=== PATIENT | female | born 1990 | race African-American/Black ===

== ENCOUNTER 2017-10-12 16:10 | Inpatient (IN) | payer MEDICAID ==
[~2017-10-12] VITALS: Ht 170.2 cm; Wt 81.6 kg
[2017-10-12] MEDS ORDERED: DEXT 5%/LR + PITOCIN 20UNITS/L 1,000 ML IV SCH ×2 (18:25→23:45)
[2017-10-12] MEDS ORDERED: CARBOPROST TROMETHAMINE 250 MCG/ML AMPUL IM PRN (18:30)
[2017-10-12] MEDS ORDERED: NALOXONE HCL 0.4 MG/ML 1ML VIAL IM PRN (18:30)
[2017-10-12] MEDS ORDERED: METHYLERGONOVINE MALEATE 0.2 MG/ML IM PRN (18:30)
[2017-10-12 19:05] LABS: CLARITY URINE CLEAR (CLEAR); COLOR URINE YELLOW (YELLOW); KETONES URINE NEGATIVE (NEGATIVE); LEUKOCYTE ESTERASE URINE TRACE (NEGATIVE); NITRITE URINE NEGATIVE (NEGATIVE); OCCULT BLOOD URINE NEGATIVE (NEGATIVE); PH URINE 6.5 (4.5-8.0); PROTEIN URINE NEGATIVE (NEGATIVE); SPECIFIC GRAVITY URINE 1.014 (1.005-1.030)
[2017-10-12 19:08] LABS: BASOPHILS % 0.3 % (0.0-2.0); EOSINOPHILS % 0.6 % (0.0-5.0); HEMATOCRIT. 32.5 % (36.0-48.0); HEMOGLOBIN. 10.8 g/dL (12.0-16.0); MONOCYTES % 6.3 % (2.0-8.0); NEUTROPHILS % 76.8 % (40.0-76.0); PLATELET 230 x1000/uL (130-400); RED BLOOD CELL COUNT 3.74 mill/uL (4.2-5.4); RED CELL DISTRIBUTION WIDTH 12.6 % (11.6-14.6)
[2017-10-12] MEDS: LACTATED RINGERS 1,000 ML IV SCH ×2 (19:09→21:30)
[2017-10-12 19:12] LABS: PARTIAL THROMBOPLASTIN TIME 25.1 sec (23.4-31.0); PROTHROMBIN TIME 10.2 sec (9.4-11.6)
[2017-10-12 19:25] LABS: *AMPHETAMINES SCREEN URINE NEGATIVE (NEGATIVE); *BARBITURATES SCREEN URINE NEGATIVE (NEGATIVE); *BENZODIAZEPINES SCREEN URINE NEGATIVE (NEGATIVE); *COCAINE SCREEN URINE NEGATIVE (NEGATIVE); CANNABINOID URINE SCREEN NEGATIVE (NEGATIVE); METHADONE URINE SCREEN NEGATIVE (NEGATIVE); OPIATES URINE SCREEN NEGATIVE (NEGATIVE); PHENCYCLIDINE URINE SCREEN NEGATIVE (NEGATIVE)
[2017-10-12 19:46] LABS: HEPATITIS B SURFACE ANTIGEN NEGATIVE; RUBELLA IGG 15.7 IU/mL (4.99-10)
[2017-10-12] MEDS ORDERED: CITRIC ACID/SODIUM CITRATE SOLN 30ML UDC PO NR (20:15)
[2017-10-12] MEDS ORDERED: MORPHINE SULFATE/PF 1MG/ML 10ML AMP ONE (22:28)
[2017-10-12] MEDS ORDERED: SODIUM CHLORIDE 0.9% 10ML VIAL ONE (22:29)
[2017-10-12] MEDS ORDERED: CEFAZOLIN SODIUM 1000MG/VIAL ONE (22:29)
[2017-10-12] MEDS ORDERED: METOCLOPRAMIDE HCL 10MG/2ML VIAL ONE (23:21)
[2017-10-12] MEDS ORDERED: ONDANSETRON HCL 4MG/2ML VIAL ONE (23:22)
[2017-10-12] MEDS ORDERED: OXYTOCIN 10 UNITS/ML 1ML ONE (23:26)
[2017-10-12] MEDS ORDERED: IBUPROFEN 400MG TABLET PO PRN (23:45)
[2017-10-12] MEDS ORDERED: ACETAMINOPHEN WITH CODEINE 300/30MG TABLET PO PRN (23:45)
[2017-10-12] MEDS ORDERED: ONDANSETRON HCL 4MG/2ML VIAL IV PRN (23:45)
[2017-10-12] MEDS ORDERED: HYDROMORPHONE HCL/PF 2MG/ML CPJ IM PRN (23:45)
[2017-10-12] MEDS ORDERED: RHO(D) IMMUNE GLOBULIN 300 MCG/SYR IM PRN (23:45)
[2017-10-13] MEDS ORDERED: KETOROLAC 30MG/ML VIAL IV PRN
[2017-10-13] MEDS: LACTATED RINGERS 1,000 ML IV SCH ×2 (00:56→03:59)
[2017-10-13 02:35] VITALS: BP 97/50
[2017-10-13 04:00] VITALS: BP 95/51
[2017-10-13] MEDS ORDERED: DIPHENHYDRAMINE 50MG/ML VIAL IV PRN (04:00)
[2017-10-13 06:00] VITALS: BP 96/49
[2017-10-13 07:53] VITALS: BP 91/50
[2017-10-13 16:29] LABS: BASOPHILS % 0.2 % (0.0-2.0); EOSINOPHILS % 0.4 % (0.0-5.0); HEMATOCRIT. 26.5 % (36.0-48.0); LYMPHOCYTES % 12.2 % (20.0-50.0); MEAN CORPUSCULAR HEMOGLOBIN 29.7 pg (28.0-32.0); MEAN CORPUSCULAR VOLUME 87.8 fL (81.0-99.0); MEAN PLATELET VOLUME 9.2 fl (7.4-10.4); MONOCYTES % 8.1 % (2.0-8.0); NEUTROPHILS % 79.1 % (40.0-76.0); PLATELET 203 x1000/uL (130-400); RED BLOOD CELL COUNT 3.02 mill/uL (4.2-5.4); RED CELL DISTRIBUTION WIDTH 12.6 % (11.6-14.6)
[2017-10-13 17:10] VITALS: BP 91/51
[2017-10-13] MEDS: IBUPROFEN 800MG TABLET PO PRN (20:15)
[2017-10-13 22:00] VITALS: BP 104/57
[2017-10-14 06:00] VITALS: BP 103/59
[2017-10-14 08:00] VITALS: BP 92/54
[2017-10-14 12:00] VITALS: BP 106/61
[2017-10-14] MEDS ORDERED: LANOLIN OINT 0.25 GM TUBE TOP PRN (13:00)
[2017-10-14] MEDS ORDERED: LANOLIN OINT 0.25 GM TUBE TOP NR (13:00)
[2017-10-14] MEDS ORDERED: BISACODYL 10MG SUPP PR PRN (13:00)
[2017-10-14] MEDS: IBUPROFEN 800MG TABLET PO PRN ×2 (14:29→19:44)
[2017-10-14 16:47] VITALS: BP 92/62
[2017-10-14 19:35] VITALS: BP 101/58
[2017-10-15 03:45] VITALS: BP 96/58
[2017-10-15] MEDS: IBUPROFEN 800MG TABLET PO PRN (06:55)
[2017-10-15 08:30] VITALS: BP 97/52
== END 2017-10-15 15:50 | disposition home or self-care (01) | DRG 540 ==
LOC: L&D 16:11 → OBSVTOIN 16:11 → 7EST PP/OB 10-13 02:20
PROVIDERS: ADMIT Obstetrics & Gynecology; ATTEND Obstetrics & Gynecology
PROC: 10D00Z1 Extraction of Products of Conception, Low, Open Approach (ICD-10-PCS; principal; 2017-10-12 23:45)
DX: O34.211 Maternal care for low transverse scar from previous cesarean delivery (principal); D64.9 Anemia, unspecified; O99.03 Anemia complicating the puerperium; Z37.0 Single live birth; Z3A.38 38 weeks gestation of pregnancy; Z82.49 Family history of ischemic heart disease and other diseases of the circulatory system; Z83.3 Family history of diabetes mellitus
CPT/HCPCS: 36415; 80305; 81003; 85025; 85610; 85730; 86592; 86703; 86762; 86850; 86900; 87340; 88307; A4216; J0690; J1200; J1885; J2274; J2405; J2590; J2765; J7120; A4315